=== PATIENT | male | born 2005 ===

== ENCOUNTER 2023-04-17 14:46 | Outpatient (AMB) | payer OTHER, SELFPAY ==
--- NOTE | 2023-04-17 16:05 | MHC.OFFWIV ---
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 Patient Tobacco Use Status: Never used Tobacco Allergies No Known Allergies Allergy (Verified 04/17/23 16:34) Medication List - Last Reconciled 04/17/23 by Dharmesh Lucero MD No Known Home Meds Do you need a note to return to daycare/school/sports/work: Yes HPI STAFF DEVELOPMENT NURSE/lower back pain(lobby) HPI Details Patient presents to the office for a sick visit. Complaining of lower back pain for the past week. No history of fall or trauma prior to the onset of symptoms. No urinary incontinence. No fevers or chills. Pain is worse on bending forwards or sideways. Relieve done sitting down. Pain is radiating into the gluteal area. PFSH Social History Patient Tobacco Use Status: Never used Tobacco Physical Exam Vital Signs: Last Vital Signs Pulse 62 04/17/23 16:07 BP 110/72 04/17/23 16:07 Pulse Ox 98 04/17/23 16:07 Oxygen Delivery Method Room Air 04/17/23 16:07 BMI result Body Mass Index 22.4 Const General: cooperative and healthy appearing Nutritional Appearance: well nourished Orientation/consciousness: patient oriented x3 Limitations: no limitations HEENT Head: Yes normal to inspection Eyes General: appearance normal, both eyes and all related structures Neck Neck: Yes normal visual inspection Chest Chest palpation & inspection: normal palpation of entire chest wall Resp Effort & Inspection: normal respiratory effort Neuro General: patient oriented x3 Assessment & Plan Assessment & Plan (1) Low back pain: Code(s): M54.50 - Low back pain, unspecified Plan: Self-limiting illness. No medications needed. Note for work given. Coding Level of Care Code Est Pt Level 3 (89878) Diagnoses Low back pain M54.50
[2023-04-17 16:07] VITALS: BP 110/72; PULSE 62; O2SAT 98; BMI 22.4
== END 2023-04-17 16:36 | disposition home or self-care (01) ==
PROVIDERS: Visit Provider Internal Medicine
DX: M54.50 Low back pain, unspecified (principal)
CPT/HCPCS: 99213